=== PATIENT | female | born 2000 | race Two or more races ===

== ENCOUNTER 2025-05-10 10:23 | Emergency (ER) | payer MEDICAID, OTHER ==
[~2025-05-10] VITALS: Ht 160 cm; Wt 97.8 kg
--- NOTE | 2025-05-10 11:04 | ED.PDOC ---
COAGULATOR HPI Comments 24 y/o F presents with c/c abnormal vaginal bleeding. Patient endorses on unprovoked and atraumatic onset of spotting, yesterday and today, following sexual intercourse. She states on recent positive test following last menstrual period on 03/16/25. Denies any urinary symptoms, fever, chills, nausea, vomiting, or further associated symptoms. Chief Complaint: Vaginal Bleed Time Seen by MD: 10:45 Reviewed Notes: Nurses Notes, Medications, Allergies Allergies: Coded Allergies: NO KNOWN ALLERGIES (Unverified , 05/10/25) Information Source: Patient Mode of Arrival: Ambulatory Timing: Days Prehospital treatment: None Severity: Moderate Past Medical History PAST MEDICAL HISTORY: Denies Surgical History: Denies all surgeries CMO & PRESIDENT History: No Pertinent CMO & PRESIDENT History LMP 03/26/25 Social History Smoker: Non-Smoker Alcohol: Denies ETOH Use Drugs: Denies Drug Use Lives In: Home All Other Systems: Reviewed and Negative (As per HPI) Physical Exam General Appearance: No Apparent Distress, Normal HEENT: Normal ENT Inspection, Pharynx Normal, TMs Normal Neck: Full Range of Motion, Non-Tender, Normal, Normal Inspection Respiratory: Chest Non-Tender, Lungs Clear, No Accessory Muscle Use, No Respiratory Distress, Normal Breath Sounds Cardiovascular: No Edema, No JVD, No Murmur, No Gallop, Normal Peripheral Pul ses, Regular Rate/Rhythm Breast Exam: Deferred Gastrointestinal: No Organomegaly, Non Tender, No Pulsatile Mass, Normal Bowel Sounds, Soft Genitalia: Deferred Pelvic: Deferred Rectal: Deferred Extremities: No calf tenderness, Normal capillary refill, Normal inspection, Normal range of motion, Non-tender, No pedal edema Neurologic: Alert, real estate legal assistant II-XII nml as Tested, No Motor Deficits, Normal Affect, Normal Mood, No Sensory Deficits Cerebellar Function: Normal Reflexes: Normal Skin: Dry, Normal Color, Warm Peripheral Pulses: 1+ carotid (R), 1+ carotid (L) Lymphatic: No Adenopathy Was a procedure done? Was a procedure done?: No Differential Diagnosis (CMO & PRESIDENT) Vaginal Bleeding: - Incomplete, - Threatened, Blood Loss Anemia, Dysmenorrhea, Ectopic , Hormonal, Menorrhagia, Menstrual Bleeding, UTI Mass / Lesion: N/A Vaginal Discharge: N/A X-Ray, Labs, Meds, VS Vital Signs Date Time Temp Pulse Resp B/P (MAP) Pulse Ox O2 Delivery O2 Flow Rate FiO2 05/10/25 10:27 98.3 87 16 137/71 99 98.3 Lab Test 05/10/25 10:56 Range/Units Beta HCG, Quantitative 977.6 H 1.5-4.2 mIU/mL X-Ray, Labs, Meds, VS Comment Course in the emergency department eventful patient came in she is about two months per data and she had a little spotting today after intercourse Beta HCG is 997.6 very early Patient is reassured and told to see her doctor for follow up Time of 1ST Reevaluation: 11:15 Reevaluation 1ST: Unchanged Patient Education/Counseling: Diagnosis, Treatment, Prognosis, Need For Follow Up Family Education/Counseling: Diagnosis, Treatment, Prognosis, Need For Follow Up, No Family Present Departure 1 Departure Time of Disposition: 12:43 Impression: Primary Impression: Early stage of Additional Impression: First trimester bleeding Disposition: 01 HOME / SELF CARE / HOMELESS Condition: Good Additional Instructions: You need to follow up with your temperature regulator Discharged With: Self Critical Care Note Critical Care Time?: No Stability Stability form required: No Heart Score Heart Score: Heart Score Response (Comments) Value History N/A 0 EKG N/A 0 Age <45 0 Risk Factors No known risk factors 0 Troponin N/A 0 Total 0 I personally scribed for MARKO ASHRAF MD ([email or web address]) on 05/10/25 at 11:04. Electronically submitted by Ravi Dan ([email or web address]). MARKO ASHRAF MD May 10, 2025 11:04
[2025-05-10 12:56] VITALS: BP 128/65; PULSE 68; RESP 18; TEMP 98.8; O2SAT 100
== END 2025-05-10 13:05 | disposition home or self-care (01) ==
LOC: ER 10:23
DX: O20.0 Threatened abortion (principal); Z3A.01 Less than 8 weeks gestation of pregnancy
CPT/HCPCS: 36415; 84702